=== PATIENT | female | born 1975 | race Caucasian/White ===

== ENCOUNTER 2016-08-09 20:29 | Emergency (ER) | payer OTHER ==
[2016-08-09 20:29] VITALS: O2SAT 100
[2016-08-09 20:51] VITALS: RESP 18; TEMP 97.4
[2016-08-09] MEDS ORDERED: MORPHINE SULFATE 10 MG/ML SOL IV ONE (21:06)
[2016-08-09] MEDS ORDERED: MORPHINE SULFATE 10 MG/ML SOL ONE (21:18)
[2016-08-09 21:20] LABS: BASOPHILS % (AUTO) 1 % (0-3); EOSINOPHILS % (AUTO) 4 % (0-9); HEMATOCRIT 36 % (35-47); MEAN CORPUSCULAR HGB CONC 34.2 gm/dl (32.0-36.0); MONOCYTES % (AUTO) 9.5 % (0-12); NEUTROPHILS % (AUTO) 47.3 % (37-80)
[2016-08-09] MEDS ORDERED: SODIUM CHLORIDE 0.9% FLUSH 10 ML SOL IV PRN (21:29)
[2016-08-09 21:31] LABS: POTASSIUM 3.5 mMol/L (3.5-5.1)
[2016-08-09 21:42] VITALS: BP 117/79; PULSE 68
== END 2016-08-09 23:01 | disposition home or self-care (01) ==
LOC: ED 20:29
DX: R51 Headache (principal)
CPT/HCPCS: 70460; 80048; 85025; 85651; 99283 ×2; J2270; Q9967; 96374; 99284

== ENCOUNTER 2016-08-11 13:00 | Emergency (ER) | payer OTHER ==
[2016-08-11 13:05] VITALS: O2SAT 100
[2016-08-11] MEDS ORDERED: LIDOCAINE HCL 2% (VISCOUS) 20 ML SOL ONE (13:14)
[2016-08-11] MEDS ORDERED: LIDOCAINE HCL 2% (VISCOUS) 20 ML SOL MT ONE (13:25)
[2016-08-11 13:32] VITALS: BP 112/73; PULSE 74; RESP 24; TEMP 97.6
== END 2016-08-11 13:47 | disposition home or self-care (01) ==
LOC: ED 13:00
DX: K08.89 Other specified disorders of teeth and supporting structures (principal)
CPT/HCPCS: 99282

== ENCOUNTER 2017-01-06 16:54 | Emergency (ER) | payer SELFPAY ==
[2017-01-06 17:41] VITALS: BP 107/77; PULSE 63; RESP 16; TEMP 98.1; O2SAT 96
== END 2017-01-06 17:48 | disposition home or self-care (01) | DRG 605 ==
LOC: ED 16:54
DX: S61.213A Laceration without foreign body of left middle finger without damage to nail, initial encounter (principal)
CPT/HCPCS: 12001; 99283; G0168

== ENCOUNTER 2017-02-15 11:49 | Emergency (ER) | payer SELFPAY ==
[2017-02-15 12:33] VITALS: BP 118/58; PULSE 76; RESP 18; TEMP 98.5; O2SAT 98
== END 2017-02-15 12:53 | disposition home or self-care (01) | DRG 563 ==
LOC: ED 11:49
DX: S93.602A Unspecified sprain of left foot, initial encounter (principal); W18.40XA Slipping, tripping and stumbling without falling, unspecified, initial encounter
CPT/HCPCS: 73630; 99283

== ENCOUNTER 2017-05-10 13:58 | Emergency (ER) | payer MEDICAID, OTHER ==
[2017-05-10 14:15] VITALS: TEMP 98.3
[2017-05-10] MEDS ORDERED: KETOROLAC TROMETHAMINE 30 MG/ML SOL IM ONE (14:27)
[2017-05-10 14:36] LABS: BASOPHILS % (AUTO) 2 % (0-3); EOSINOPHILS % (AUTO) 6 % (0-9); HEMATOCRIT 35 % (35-47); MEAN CORPUSCULAR HGB CONC 34.8 gm/dl (32.0-36.0); MEAN CORPUSCULAR VOLUME 90 fL (81-99); MONOCYTES % (AUTO) 7.4 % (0-12); NEUTROPHILS % (AUTO) 52.7 % (37-80)
[2017-05-10 14:46] LABS: CALCIUM 8.3 mg/dl (8.5-10.1); MAGNESIUM 1.8 mg/dl (1.8-2.4); POTASSIUM 3.7 mMol/L (3.5-5.1)
[2017-05-10 16:39] VITALS: BP 104/78; PULSE 83; RESP 21; O2SAT 100
== END 2017-05-10 14:40 | disposition home or self-care (01) ==
LOC: ED 13:58
DX: R07.89 Other chest pain (principal); R42 Dizziness and giddiness; M79.602 Pain in left arm
CPT/HCPCS: 36415; 80048; 83735; 85025; 93005; 99282; 99283; 99284

== ENCOUNTER 2017-06-24 21:38 | Emergency (ER) | payer OTHER ==
[2017-06-24 21:46] VITALS: TEMP 98.2
[2017-06-24] MEDS ORDERED: ASPIRIN 81 MG CHEWABLE CTB PO ONE ×2 (22:22→22:26)
[2017-06-24] MEDS ORDERED: ASPIRIN 81 MG CHEWABLE CTB ONE (22:26)
[2017-06-24 22:31] LABS: APPEARANCE,URINE Clear; BILIRUBIN,URINE NEGATIVE (NEGATIVE); COLOR,URINE Yellow; GLUCOSE, URINE (UA) NEGATIVE (NEGATIVE); KETONES,URINE NEGATIVE (NEGATIVE); LEUKOCYTE ESTERASE ,URINE NEGATIVE (NEGATIVE); NITRATE,URINE NEGATIVE (NEGATIVE); OCCULT BLOOD,URINE NEGATIVE (NEG-TRACE); UROBILINOGEN,URINE 0.2 (0.2-1.0 EU)
[2017-06-24 22:38] LABS: BASOPHILS % (AUTO) 1 % (0-3); EOSINOPHILS % (AUTO) 4 % (0-9); HEMATOCRIT 38 % (35-47); MEAN CORPUSCULAR HGB CONC 33.4 gm/dl (32.0-36.0); MEAN CORPUSCULAR VOLUME 94 fL (81-99); MONOCYTES % (AUTO) 6.9 % (0-12); NEUTROPHILS % (AUTO) 47.6 % (37-80)
[2017-06-24 22:47] LABS: CALCIUM 8.6 mg/dl (8.5-10.1); POTASSIUM 3.7 mMol/L (3.5-5.1)
[2017-06-24 22:49] LABS: RBC,URINE NEGATIVE (0-3AV/HPF); WBC,URINE 0-2 (0-5AV/HPF)
[2017-06-24] MEDS ORDERED: LIDOCAINE HCL 2% (VISCOUS) 20 ML SOL MT ONE (22:54)
[2017-06-24] MEDS ORDERED: ALUMINUM/MAGNESIUM 30 ML SUS PO ONE (22:54)
[2017-06-24] MEDS ORDERED: ALUMINUM/MAGNESIUM 30 ML SUS ONE (22:54)
[2017-06-24] MEDS ORDERED: LIDOCAINE HCL 2% (VISCOUS) 20 ML SOL ONE (22:55)
[2017-06-24] MEDS ORDERED: PANTOPRAZOLE SODIUM 40 MG ECT PO ONE ×2 (23:16→23:17)
[2017-06-25 00:17] VITALS: PULSE 73; O2SAT 98
[2017-06-25 00:20] VITALS: BP 106/70; RESP 15
== END 2017-06-25 00:12 | disposition home or self-care (01) ==
LOC: ED 21:38
DX: K21.9 Gastro-esophageal reflux disease without esophagitis (principal)
CPT/HCPCS: 36415; 71020; 80048; 81001; 84484; 85025; 93005; 99283; 99284

== ENCOUNTER 2017-12-19 20:02 | Emergency (ER) | payer OTHER ==
[2017-12-19 20:23] VITALS: RESP 16; TEMP 99.3; O2SAT 99
[2017-12-19 20:34] LABS: BASOPHILS % (AUTO) 1 % (0-3); EOSINOPHILS % (AUTO) 2 % (0-9); HEMATOCRIT 35 % (35-47); HEMOGLOBIN 12.1 gm/dl (12.0-15.5); LYMPHOCYTES % (AUTO) 17.6 % (10-50); MEAN CORPUSCULAR HEMOGLOBIN 31.2 pg (27.0-32.0); MEAN CORPUSCULAR HGB CONC 34.5 gm/dl (32.0-36.0); MEAN CORPUSCULAR VOLUME 91 fL (81-99); MONOCYTES % (AUTO) 10.2 % (0-12); NEUTROPHILS % (AUTO) 69.5 % (37-80)
[2017-12-19 20:52] LABS: ALBUMIN 3.5 gm/dl (3.4-5.0); BILIRUBIN,TOTAL 0.2 mg/dl (0.2-1.0); CALCIUM 8.2 mg/dl (8.5-10.1); CARBON DIOXIDE 29.8 mEq/L (21-32); CREATININE 0.6 mg/dl (0.60-1.00); CRP INFLAMMATORY 1.67 mg/dl (0.00-0.33); POTASSIUM 3.5 mMol/L (3.5-5.1); TOTAL PROTEIN 6.9 gm/dl (6.4-8.2)
[2017-12-19] MEDS ORDERED: PREDNISONE 20 MG TAB ONE (21:14)
[2017-12-19] MEDS: PREDNISONE 20 MG TAB PO ONE (21:14)
[2017-12-19 21:55] VITALS: BP 127/83; PULSE 84
== END 2017-12-19 21:43 | disposition home or self-care (01) ==
LOC: ED 20:02 → SUPCPDRO 20:02 → ED 21:43
DX: M32.9 Systemic lupus erythematosus, unspecified (principal); R50.9 Fever, unspecified
CPT/HCPCS: 36415; 80053; 85025; 87430; 99282; 99283; A9270-GY

== ENCOUNTER 2017-12-31 21:13 | Emergency (ER) | payer OTHER ==
[2017-12-31 21:20] VITALS: BP 119/79; PULSE 89; RESP 18; TEMP 98.3; O2SAT 100
[2017-12-31] MEDS ORDERED: PREDNISONE 20 MG TAB PO ONE (21:46)
[2017-12-31] MEDS ORDERED: APAP/OXYCODONE 325/5 TAB PO ONE (21:47)
[2017-12-31] MEDS ORDERED: APAP/OXYCODONE 325/5 TAB ONE (21:48)
[2017-12-31] MEDS ORDERED: PREDNISONE 20 MG TAB ONE (21:48)
== END 2017-12-31 22:09 | disposition home or self-care (01) ==
LOC: ED 21:13
DX: M79.7 Fibromyalgia (principal)
CPT/HCPCS: 99282; A9270-GY

== ENCOUNTER 2018-01-09 18:49 | Emergency (ER) | payer OTHER ==
[2018-01-09 19:00] VITALS: TEMP 98.1
[2018-01-09 19:35] LABS: BASOPHILS % (AUTO) 1 % (0-3); EOSINOPHILS % (AUTO) 2 % (0-9); HEMATOCRIT 37 % (35-47); HEMOGLOBIN 12.5 gm/dl (12.0-15.5); LYMPHOCYTES % (AUTO) 13.7 % (10-50); MEAN CORPUSCULAR HEMOGLOBIN 31.1 pg (27.0-32.0); MEAN CORPUSCULAR HGB CONC 34.1 gm/dl (32.0-36.0); MEAN CORPUSCULAR VOLUME 91 fL (81-99); MONOCYTES % (AUTO) 7.5 % (0-12); NEUTROPHILS % (AUTO) 75.9 % (37-80)
[2018-01-09] MEDS: PREDNISONE 20 MG TAB PO ONE (19:43)
[2018-01-09] MEDS ORDERED: PREDNISONE 20 MG TAB ONE (19:43)
[2018-01-09 19:56] LABS: ALBUMIN 3.6 gm/dl (3.4-5.0); ALKALINE PHOSPHATASE 66 IU/L (46-116); ALT 32 IU/L (14-63); AST 17 IU/L (15-37); BILIRUBIN,TOTAL 0.4 mg/dl (0.2-1.0); BLOOD UREA NITROGEN 7 mg/dl (7-18); CALCIUM 8.3 mg/dl (8.5-10.1); CARBON DIOXIDE 27.4 mEq/L (21-32); CHLORIDE 100 mMol/L (98-107); CREATININE 0.68 mg/dl (0.60-1.00); GLUCOSE 104 mg/dl (74-106); POTASSIUM 3.5 mMol/L (3.5-5.1); SODIUM 134 mMol/L (136-145); TOTAL PROTEIN 6.5 gm/dl (6.4-8.2); TROP I < 0.017 ng/ml (0.000-0.056)
[2018-01-09 22:48] VITALS: O2SAT 99
[2018-01-09 22:51] VITALS: BP 125/85; PULSE 105; RESP 13
== END 2018-01-09 20:28 | disposition home or self-care (01) ==
LOC: ED 18:49
DX: R51 Headache (principal); M79.7 Fibromyalgia; R06.02 Shortness of breath; R53.81 Other malaise; R07.9 Chest pain, unspecified
CPT/HCPCS: 36415; 80053; 84484; 85025; 93005; 99283; A9270-GY

== ENCOUNTER 2018-01-10 21:47 | Emergency (ER) | payer OTHER ==
[2018-01-10 22:03] VITALS: BP 112/70; PULSE 80; RESP 18; TEMP 97.1; O2SAT 96
[2018-01-10 22:34] LABS: BASOPHILS % (AUTO) 1 % (0-3); EOSINOPHILS % (AUTO) 0 % (0-9); HEMATOCRIT 36 % (35-47); HEMOGLOBIN 12.6 gm/dl (12.0-15.5); LYMPHOCYTES % (AUTO) 11.6 % (10-50); MEAN CORPUSCULAR HEMOGLOBIN 30.8 pg (27.0-32.0); MEAN CORPUSCULAR VOLUME 88 fL (81-99); NEUTROPHILS % (AUTO) 83.7 % (37-80)
[2018-01-10 22:45] LABS: BLOOD UREA NITROGEN 7 mg/dl (7-18); CALCIUM 8.6 mg/dl (8.5-10.1); CARBON DIOXIDE 27.3 mEq/L (21-32); CHLORIDE 103 mMol/L (98-107); CREATININE 0.58 mg/dl (0.60-1.00); GLOM FILT RATE 114 mL/min (>60); GLUCOSE 115 mg/dl (74-106); SODIUM 137 mMol/L (136-145); TROP I < 0.017 ng/ml (0.000-0.056)
== END 2018-01-10 22:58 | disposition home or self-care (01) ==
LOC: ED 21:47
DX: M79.7 Fibromyalgia (principal)
CPT/HCPCS: 36415; 71046; 80048; 84484; 85025; 93005; 99282; 99283

== ENCOUNTER 2018-01-13 12:41 | Emergency (ER) | payer OTHER ==
[2018-01-13 12:54] VITALS: BP 115/79; PULSE 88; RESP 18; TEMP 97.4; O2SAT 97
[2018-01-13] MEDS ORDERED: NITROGLYCERIN 0.4 MG TAB SL PRN (13:07)
[2018-01-13] MEDS ORDERED: ASPIRIN 81 MG CHEWABLE CTB PO STA (13:07)
[2018-01-13] MEDS ORDERED: SODIUM CHLORIDE 0.9% FLUSH 10 ML SOL IV PRN (13:07)
[2018-01-13 13:24] LABS: BASOPHILS % (AUTO) 1 % (0-3); EOSINOPHILS % (AUTO) 0 % (0-9); HEMATOCRIT 39 % (35-47); HEMOGLOBIN 13.6 gm/dl (12.0-15.5); MEAN CORPUSCULAR HEMOGLOBIN 30.9 pg (27.0-32.0); MEAN CORPUSCULAR HGB CONC 34.6 gm/dl (32.0-36.0); MEAN CORPUSCULAR VOLUME 89 fL (81-99); MONOCYTES % (AUTO) 0.9 % (0-12); NEUTROPHILS % (AUTO) 88.1 % (37-80)
[2018-01-13 13:33] LABS: ALBUMIN 3.8 gm/dl (3.4-5.0); ALKALINE PHOSPHATASE 92 IU/L (46-116); ALT 28 IU/L (14-63); AST 13 IU/L (15-37); BILIRUBIN,TOTAL 0.2 mg/dl (0.2-1.0); BLOOD UREA NITROGEN 10 mg/dl (7-18); CALCIUM 8.8 mg/dl (8.5-10.1); CARBON DIOXIDE 24.2 mEq/L (21-32); CHLORIDE 103 mMol/L (98-107); CREATINE KINASE 23 U/L (26-192); CREATININE 0.75 mg/dl (0.60-1.00); GLOM FILT RATE 85 mL/min (>60); GLUCOSE 198 mg/dl (74-106); POTASSIUM 4.5 mMol/L (3.5-5.1); SODIUM 136 mMol/L (136-145); TOTAL PROTEIN 7.1 gm/dl (6.4-8.2); TROP I < 0.017 ng/ml (0.000-0.056)
[2018-01-13 14:03] LABS: APPEARANCE,URINE Clear; BILIRUBIN,URINE NEGATIVE (NEGATIVE); COLOR,URINE Yellow; GLUCOSE, URINE (UA) TRACE (NEGATIVE); KETONES,URINE NEGATIVE (NEGATIVE); LEUKOCYTE ESTERASE ,URINE NEGATIVE (NEGATIVE); NITRATE,URINE NEGATIVE (NEGATIVE); OCCULT BLOOD,URINE NEGATIVE (NEG-TRACE); UROBILINOGEN,URINE 0.2 (0.2-1.0 EU)
[2018-01-13 14:13] LABS: RBC,URINE NEG (0-3AV/HPF); WBC,URINE 0-1 (0-5AV/HPF)
[2018-01-13 14:14] LABS: BACTERIA NEGATIVE (< 1+); CRYSTALS NEGATIVE (0-3 AVE/HPF)
== END 2018-01-13 14:30 | disposition home or self-care (01) ==
LOC: ED 12:41
DX: R07.89 Other chest pain (principal); M79.7 Fibromyalgia
CPT/HCPCS: 71045; 80053; 81001; 82550; 84484; 85025; 93005; 99283

== ENCOUNTER 2018-01-24 21:51 | Emergency (ER) | payer OTHER ==
[2018-01-24] MEDS ORDERED: KETOROLAC TROMETHAMINE 30 MG/ML SOL IV ONE (22:30)
[2018-01-24] MEDS ORDERED: METOCLOPRAMIDE HYDROCHLORIDE 5 MG/ML SOL IV ONE (22:30)
[2018-01-24] MEDS ORDERED: SOLUMEDROL 125 MG/2 ML 125 MG/2 ML PDS IV ONE (22:31)
[2018-01-24] MEDS: SODIUM CHLORIDE 0.9% 1000ML 1,000 ML IV SCH ×2 (22:45→23:31)
[2018-01-24] MEDS ORDERED: SOLUMEDROL 125 MG/2 ML 125 MG/2 ML PDS ONE (22:47)
[2018-01-24] MEDS ORDERED: METOCLOPRAMIDE HYDROCHLORIDE 5 MG/ML SOL ONE (22:47)
[2018-01-24] MEDS ORDERED: KETOROLAC TROMETHAMINE 30 MG/ML SOL ONE (22:47)
[2018-01-24 22:53] LABS: BASOPHILS % (AUTO) 1 % (0-3); EOSINOPHILS % (AUTO) 2 % (0-9); HEMATOCRIT 36 % (35-47); HEMOGLOBIN 12.9 gm/dl (12.0-15.5); LYMPHOCYTES % (AUTO) 12.6 % (10-50); MEAN CORPUSCULAR HEMOGLOBIN 32.1 pg (27.0-32.0); MEAN CORPUSCULAR HGB CONC 36.2 gm/dl (32.0-36.0); MEAN CORPUSCULAR VOLUME 89 fL (81-99); MONOCYTES % (AUTO) 13.9 % (0-12)
[2018-01-24 23:05] LABS: ALBUMIN 3.2 gm/dl (3.4-5.0); BILIRUBIN,TOTAL 0.2 mg/dl (0.2-1.0); CALCIUM 8.3 mg/dl (8.5-10.1); CREATININE 0.64 mg/dl (0.60-1.00); POTASSIUM 3.6 mMol/L (3.5-5.1); TOTAL PROTEIN 6.2 gm/dl (6.4-8.2)
[2018-01-24 23:20] LABS: CARBON DIOXIDE 31.1 mEq/L (21-32)
[2018-01-24 23:29] VITALS: BP 114/76; PULSE 98; RESP 20; TEMP 100.9; O2SAT 98
== END 2018-01-25 00:24 | disposition home or self-care (01) ==
LOC: ED 21:51
DX: G43.009 Migraine without aura, not intractable, without status migrainosus (principal)
CPT/HCPCS: 36415; 80053; 85025; 96365; 96374; 96375; 99283; 99284; J1885; J2765; J2930

== ENCOUNTER 2018-03-28 22:44 | Emergency (ER) | payer OTHER ==
[2018-03-28 23:02] VITALS: TEMP 97.7
[2018-03-28 23:47] VITALS: BP 112/68; PULSE 87; RESP 17; O2SAT 98
== END 2018-03-28 23:32 | disposition home or self-care (01) ==
LOC: ED 22:44
DX: R00.2 Palpitations (principal)
CPT/HCPCS: 93005; 99283

== ENCOUNTER 2018-06-22 08:07 | Emergency (ER) | payer OTHER ==
[2018-06-22 08:12] VITALS: RESP 20
[2018-06-22 08:49] VITALS: BP 116/80; PULSE 93; TEMP 96.9; O2SAT 94
[2018-06-22] MEDS ORDERED: KETOROLAC TROMETHAMINE 30 MG/ML SOL IV ONE (09:15)
[2018-06-22] MEDS ORDERED: METOCLOPRAMIDE HYDROCHLORIDE 5 MG/ML SOL IV ONE (09:15)
[2018-06-22] MEDS ORDERED: SODIUM CHLORIDE 0.9% 1000ML 1,000 ML IV SCH (09:15)
[2018-06-22] MEDS ORDERED: PANTOPRAZOLE SODIUM 40 MG/10 ML PDS IV ONE (09:16)
[2018-06-22] MEDS ORDERED: KETOROLAC TROMETHAMINE 30 MG/ML SOL ONE (09:29)
[2018-06-22] MEDS ORDERED: PANTOPRAZOLE SODIUM 40 MG/10 ML PDS ONE (09:29)
[2018-06-22] MEDS ORDERED: METOCLOPRAMIDE HYDROCHLORIDE 5 MG/ML SOL ONE (09:29)
== END 2018-06-22 10:42 | disposition home or self-care (01) ==
LOC: ED 08:07
DX: K52.9 Noninfective gastroenteritis and colitis, unspecified (principal); R11.0 Nausea
CPT/HCPCS: 96365; 96374; 96375; 99282; 99285; J1885; J2765

== ENCOUNTER 2018-06-27 13:18 | Emergency (ER) | payer SELFPAY ==
[2018-06-27 13:45] VITALS: TEMP 97.1
[2018-06-27] MEDS ORDERED: SODIUM CHLORIDE 0.9% 1000ML 1,000 ML IV ONE (13:47)
[2018-06-27 14:05] LABS: BASOPHILS % (AUTO) 1 % (0-3); EOSINOPHILS % (AUTO) 18 % (0-9); HEMATOCRIT 43 % (35-47); HEMOGLOBIN 13.7 gm/dl (12.0-15.5); LYMPHOCYTES % (AUTO) 19.3 % (10-50); MEAN CORPUSCULAR HEMOGLOBIN 29.8 pg (27.0-32.0); MEAN CORPUSCULAR HGB CONC 32.2 gm/dl (32.0-36.0); MEAN CORPUSCULAR VOLUME 93 fL (81-99); MONOCYTES % (AUTO) 7.4 % (0-12); NEUTROPHILS % (AUTO) 54.5 % (37-80)
[2018-06-27] MEDS ORDERED: PROCHLORPERAZINE EDISYLATE 5 MG/ML SOL IV ONE (14:06)
[2018-06-27] MEDS ORDERED: PROCHLORPERAZINE EDISYLATE 5 MG/ML SOL ONE (14:16)
[2018-06-27 14:30] LABS: ALBUMIN 3.4 gm/dl (3.4-5.0); BILIRUBIN,TOTAL 0.2 mg/dl (0.2-1.0); CALCIUM 8.7 mg/dl (8.5-10.1); CARBON DIOXIDE 25.8 mEq/L (21-32); CREATININE 0.58 mg/dl (0.60-1.00); MAGNESIUM 1.8 mg/dl (1.8-2.4); POTASSIUM 3.4 mMol/L (3.5-5.1); TOTAL PROTEIN 6.8 gm/dl (6.4-8.2)
[2018-06-27 14:43] VITALS: RESP 18; O2SAT 98
[2018-06-27 14:44] VITALS: BP 110/77; PULSE 80
[2018-06-27] MEDS ORDERED: POTASSIUM CHLORIDE 10 MEQ TER PO ONE (14:54)
[2018-06-27] MEDS ORDERED: POTASSIUM CHLORIDE 10 MEQ TER ONE (14:56)
[2018-06-27 14:59] LABS: APPEARANCE,URINE Slightly Cloudy; BILIRUBIN,URINE NEGATIVE (NEGATIVE); COLOR,URINE Yellow; GLUCOSE, URINE (UA) NEGATIVE (NEGATIVE); KETONES,URINE NEGATIVE (NEGATIVE); LEUKOCYTE ESTERASE ,URINE NEGATIVE (NEGATIVE); NITRATE,URINE NEGATIVE (NEGATIVE); OCCULT BLOOD,URINE NEGATIVE (NEG-TRACE); UROBILINOGEN,URINE 0.2 (0.2-1.0 EU)
[2018-06-27 15:06] LABS: RBC,URINE 0-2 (0-3AV/HPF); WBC,URINE 0-2 (0-5AV/HPF)
[2018-06-27 15:07] LABS: BACTERIA 2+ (< 1+); CRYSTALS 2+ AMORPH URATES (0-3 AVE/HPF)
== END 2018-06-27 15:08 | disposition home or self-care (01) | DRG 392 ==
LOC: ED 13:18
DX: R19.7 Diarrhea, unspecified (principal); R51 Headache
CPT/HCPCS: 80053; 81001; 83735; 85025; 96365; 96374; 99282; 99283; J0780; A9270-GY

== ENCOUNTER 2018-07-05 04:01 | Emergency (ER) | payer MEDICAID ==
[2018-07-05] MEDS ORDERED: KETOROLAC TROMETHAMINE 30 MG/ML SOL IM ONE (04:44)
[2018-07-05] MEDS ORDERED: KETOROLAC TROMETHAMINE 30 MG/ML SOL ONE (04:48)
[2018-07-05 05:03] VITALS: BP 106/77; PULSE 87; RESP 18; TEMP 97.4; O2SAT 98
== END 2018-07-05 05:11 | disposition home or self-care (01) | DRG 156 ==
LOC: ED 04:01
DX: H60.91 Unspecified otitis externa, right ear (principal); R51 Headache
CPT/HCPCS: 96372; 99283; J1885